=== PATIENT | male | born 1985 | race African-American/Black ===

== ENCOUNTER 2018-06-04 10:10 | Emergency (ER) | payer MEDICAID ==
[~2018-06-04] VITALS: Ht 182.9 cm; Wt 95.3 kg
--- NOTE | 2018-06-04 10:22 | NUR ---
ED Nurse Note: patient came in for sore thoat, chills, reports pain 8/10 for sorethroat. a/o x4, ambulatory steady gait.
--- NOTE | 2018-06-04 10:38 | Emergency Room Report ---
History of Present Illness General Chief Complaint: Flu Like Symptoms Source: Patient Present Illness HPI Patient presents with sore throat chills cough body aches for 2 days. He did have a flu shot this year. He took Tylenol yesterday and some TheraFlu earlier this morning. He still feels weak and extremely tired. Generalized joint pain and some headache. Pain rated 8/10, aching, all body. No rashes, dysuria, NVD. Never used inhaler. Has heard himself wheezing at night. Allergies: Coded Allergies: No Known Allergies (Unverified , 06/04/18) Patient History Social History: Reports: smoking Social History Narrative works at [employer] Reviewed Nursing Documentation: PMH: Agreed; PSxH: Agreed Nursing Documentation-PMH Past Medical History: No Stated History Review of Systems All Other Systems: negative except mentioned in HPI Physical Exam Vital Signs Date Time Temp Pulse Resp B/P (MAP) Pulse Ox O2 Delivery O2 Flow Rate FiO2 06/04/18 10:16 99.0 107 20 113/74 98 Room Air Sp02 EP Interpretation: reviewed, normal General Appearance: well appearing, no apparent distress, alert, GCS 15, non- toxic Head: normocephalic, atraumatic Eyes: bilateral eye normal inspection, bilateral eye PERRL ENT: pharyngeal erythema, other - cerumen Neck: supple Respiratory: lungs clear, normal breath sounds Cardiovascular #1: no edema Gastrointestinal: normal inspection, normal bowel sounds Musculoskeletal: no calf tenderness Neurologic: alert, normal gait Psychiatric: mood/affect normal Skin: no rash Medical Decision Making Diagnostic Impression: Primary Impression: URI (upper respiratory infection) Qualified Codes: J06.9 - Acute upper respiratory infection, unspecified ER Course Patient presents with viral upper respiratory symptomatology. He had a flu shot. This sounds like influenza and therefore a flu swab will be obtained. Also patient will be given Tylenol. Problems with flu swab... finally negative. Improved with treatment. Discussed treatment plan. Patient stable for outpatient observation and treatment. Microbiology Date/Time Source Procedure Growth Status 06/04/18 12:40 Nose Influenza Types A,B Antigen (KELVIN) - Final Complete Last Vital Signs Date Time Temp Pulse Resp B/P (MAP) Pulse Ox O2 Delivery O2 Flow Rate FiO2 06/04/18 13:31 98.7 99 20 105/78 97 Room Air Status: improved Disposition: HOME, SELF-CARE Condition: Improved Scripts Chlorpheniramine Maleate (CHLOR-TRIMETON) 4 Mg Tablet 4 MG PO Q6HR PRN for conjestion, #10 TAB Prov: Abisai Cyr MD 06/04/18 Acetaminophen (Tylenol) 325 Mg Tablet 650 MG ORAL Q6H PRN for Prn Pain/Headache/Temp > 101, #20 TAB 0 Refills Prov: Abisai Cyr MD 06/04/18 Guaifenesin/Codeine Phos* (ROBITUSSIN AC*) 118 Ml Liquid 5 ML ORAL Q6H PRN for For Cough, #60 ML 0 Refills Prov: Abisai Cyr MD 06/04/18 Albuterol Sulfate* (ALBUTEROL SULFATE MDI*) 8.5 Gm Hfa.aer.ad 2 PUFF INH Q6H, #1 EA 0 Refills Prov: Abisai Cyr MD 06/04/18 Abisai Cyr MD Jun 04, 2018 10:38
[2018-06-04 10:41] VITALS: BP 113/74
[2018-06-04] MEDS ORDERED: CHLOR-TRIMETON4 MG PO (13:24)
[2018-06-04] MEDS ORDERED: TYLENOL325 MG ORAL (13:24)
[2018-06-04] MEDS ORDERED: GUAIFENESIN-CO118 M1 ORAL (13:24)
[2018-06-04] MEDS ORDERED: ALBUTEROL SULF8.5 GM INH (13:24)
[2018-06-04 13:31] VITALS: BP 105/78
--- NOTE | 2018-06-04 13:31 | NUR ---
ED Nurse Note: Pt is clear to be discharged by ERMD. Discharge paper and prescripiton given, pt verbalized understanding of discharge instruction. AOx4, VSS. Wristband removed. Pt ambulated out with steady gait with all belongings.
== END 2018-06-04 13:31 | disposition home or self-care (01) ==
LOC: EMR 10:30
DX: J06.9 Acute upper respiratory infection, unspecified (principal); F17.200 Nicotine dependence, unspecified, uncomplicated
CPT/HCPCS: 86710; 99283

== ENCOUNTER 2018-06-20 19:33 | Emergency (ER) | payer MEDICAID ==
[~2018-06-20] VITALS: Ht 182.9 cm; Wt 95.3 kg
[~2018-06-20 19:33] MED LIST: ALBUTEROL SULF8.5 GM INH; CHLOR-TRIMETON4 MG PO; GUAIFENESIN-CO118 M1 ORAL; TYLENOL325 MG ORAL
[2018-06-20 20:00] VITALS: BP 116/70
--- NOTE | 2018-06-20 20:07 | NUR ---
ED Nurse Note: shari walked into ED c/o of a migraine that has been going for for 3 days now, when asked about where the pain is, patient states that it is all over. patient rates his pain a 10/10 pain. patient is alert and oriented x4, ambulatory with a steady gait, vSS
[2018-06-20] MEDS ORDERED: Excedrin Migraine tab ORAL ONE (20:15)
[2018-06-20] MEDS ORDERED: Ketorolac 30mg Inj IM ONE (20:15)
--- NOTE | 2018-06-20 20:32 | Emergency Room Report ---
History of Present Illness General Chief Complaint: Headache Source: Patient Present Illness HPI 32-year-old male presents to the emergency department complaining of 10 out of 10 in severity left-sided migraine 4 days. She reports history of migraines and states that the pain that he is feeling today is consistent with how he his migraines typically feel. Patient states that medication he was prescribed is not providing relief. Patient does not know the name of the medication that he was prescribed. Patient has a MRI canceled for this Wednesday. He denies trauma or fall. He denies sudden onset. He reports some photophobia denies hyperacusis, nausea, vomiting. Denies fevers, chills neck pain or stiffness. Allergies: Coded Allergies: No Known Allergies (Unverified , 06/20/18) Patient History Past Medical History: see triage record Past Surgical History: none Pertinent Family History: none Reviewed Nursing Documentation: PMH: Agreed; PSxH: Agreed Nursing Documentation-PMH Past Medical History: No Stated History Review of Systems All Other Systems: negative except mentioned in HPI Physical Exam Vital Signs Date Time Temp Pulse Resp B/P (MAP) Pulse Ox O2 Delivery O2 Flow Rate FiO2 06/20/18 19:56 99.7 88 16 116/70 97 Room Air Sp02 EP Interpretation: reviewed, normal General Appearance: alert, GCS 15, non-toxic, mild distress Head: normocephalic, atraumatic Eyes: bilateral eye normal inspection, bilateral eye PERRL ENT: hearing grossly normal, normal voice Neck: full range of motion, no meningismus, no bony tend Respiratory: lungs clear, normal breath sounds, speaking full sentences Cardiovascular #1: regular rate, rhythm Musculoskeletal: back normal, gait/station normal, normal range of motion, non- tender Neurologic: alert, oriented x3, responsive, motor strength/tone normal, sensory intact, normal gait, speech normal, no pronator, other - no facial droop , no slurred speech. , grossly normal Psychiatric: judgement/insight normal Skin: normal color, no rash, warm/dry, well hydrated Medical Decision Making PA Attestation Dr. Webster is my supervising Physician whom patient management has been discussed with. Diagnostic Impression: Primary Impression: Headache Qualified Codes: R51 - Headache ER Course 32-year-old male presents to the emergency department complaining of 10 out of 10 in severity left-sided migraine 4 days. She reports history of migraines and states that the pain that he is feeling today is consistent with how he his migraines typically feel. Patient states that medication he was prescribed is not providing relief. Patient does not know the name of the medication that he was prescribed. Patient has a MRI canceled for this Wednesday. He denies trauma or fall. He denies sudden onset. He reports some photophobia denies hyperacusis, nausea, vomiting. Denies fevers, chills neck pain or stiffness. Ddx considered but are not limited to migraine, SAH, Pseudomotor Cerebri, Mass lesion, Cluster BURROWS, Tension BURROWS, Post lumbar puncture BURROWS. Vital signs: are WNL, pt. is afebrile H&PE are most consistent with migraine headache--- no focal neurological deficits. ORDERS: -Reglan PO --Excedrine Migraine PO -IM Toradol -Benadryl PO ED INTERVENTIONS: DISCHARGE: At this time pt. is stable for d/c to home. Will provide printed patient care instructions, and any necessary prescriptions. Care plan and follow up instructions have been discussed with the patient prior to discharge. Last Vital Signs Date Time Temp Pulse Resp B/P (MAP) Pulse Ox O2 Delivery O2 Flow Rate FiO2 06/20/18 19:56 99.7 88 16 116/70 97 Room Air Status: improved Disposition: HOME, SELF-CARE Condition: Stable Departure Forms: Return to Work Return to Work Date: Jun 23, 2018 Work Restrictions: None Other Restrictions: May return Sooner if Symptoms have resolved. Return to Full Activity: Jun 23, 2018 Patient Instructions: Migraine Headache Additional Instructions: Take medications as directed. Follow up with a Primary Care Provider in 3-5 days For a referral to have NEUROLOGIST Evaluation, even if your symptoms have resolved. --Please review list of primary care clinics, if you do not already have a primary care provider Return sooner to ED if new symptoms occur, or current symptoms become worse. Do not drink alcohol or drive/operate heavy machinery while taking medications as some of these may cause drowsiness, and impair your judgment. - Please note that this Emergency Department Report was dictated using [employer] cardiac technology software, occasionally this can lead to erroneous entry secondary to interpretation by the dictation equipment. Laya Lew Jun 20, 2018 20:32
[2018-06-20 21:30] VITALS: BP 130/67
--- NOTE | 2018-06-20 21:30 | NUR ---
ED Nurse Note: Patient is being discharged from ED alert and oriented x4, ambulatory with a steady gait, VSS. patient acknowledged the need to follow up with PMD within a week if symptoms dont improve, Id band removed, prescription in hand and all belongings sent home with patient
[2018-06-20] MEDS ORDERED: REGLAN10 MG ORAL (21:41)
[2018-06-20] MEDS ORDERED: EXCEDRIN MIGRA1 EACH PO (21:41)
[2018-06-20] MEDS ORDERED: BENADRYL ALLERG25 M1 PO (21:41)
== END 2018-06-20 21:30 | disposition home or self-care (01) ==
LOC: EMR 20:18
DX: R51 Headache (principal); F17.200 Nicotine dependence, unspecified, uncomplicated
CPT/HCPCS: 96372; 99283; J1885

== ENCOUNTER 2020-08-04 12:12 | Emergency (ER) | payer OTHER, MEDICAID ==
[~2020-08-04] VITALS: Ht 180.3 cm; Wt 122.5 kg
[~2020-08-04 12:12] MED LIST changes: +BENADRYL ALLERG25 M1 PO; +EXCEDRIN MIGRA1 EACH PO; +REGLAN10 MG ORAL
--- NOTE | 2020-08-04 12:20 | Emergency Room Report ---
History of Present Illness General Chief Complaint: seizure Source: EMS (Jazmin Murphy M.D.) Present Illness HPI Patient is a 34-year-old male reported history of migraines in the past who presents to the ER for seizure. Patient was brought in from home by EMS. Per family they told EMS that the patient had a generalized tonic-clonic seizure. No reported history of seizures. Unable to obtain further history at this time as the patient is postictal (Jazmin Murphy M.D.) Allergies: Coded Allergies: No Known Allergies (Unverified , 06/20/18) Patient History Reviewed Nursing Documentation: PMH: Agreed; PSxH: Agreed (Jazmin Murphy M.D.) Review of Systems All Other Systems: negative except mentioned in HPI (Jazmin Murphy M.D.) Physical Exam Sp02 EP Interpretation: reviewed, normal General Appearance: no apparent distress, non-toxic Head: normocephalic, atraumatic Eyes: bilateral eye normal inspection, bilateral eye PERRL ENT: hearing grossly normal, normal pharynx, no angioedema, normal voice Neck: full range of motion, supple/symm/no masses Respiratory: chest non-tender, lungs clear, normal breath sounds, speaking full sentences Cardiovascular #1: regular rate, rhythm, no edema Gastrointestinal: normal bowel sounds, non tender, soft, non-distended, no guarding, no rebound Rectal: deferred Musculoskeletal: normal range of motion Skin: no rash Lymphatic: no adenopathy (Jazmin Murphy M.D.) Medical Decision Making Diagnostic Impression: Primary Impression: Epileptic seizure, generalized Additional Impression: Cocaine abuse ER Course Patient is now awake and alert. He states that he has had a history of seizures but is not on any medications. Patient loaded with Keppra. Patient's labs demonstrate no significant acute abnormalities. CT brain demonstrates no acute intracranial pathology. Patient pending urinalysis and UDS. Patient signed out to oncoming physician. Laboratory Tests Test 08/04/20 12:39 08/04/20 13:40 White Blood Count 6.2 K/UL (4.8-10.8) Red Blood Count 5.05 M/UL (4.70-6.10) Hemoglobin 15.3 G/DL (14.2-18.0) Hematocrit 47.0 % (42.0-52.0) Mean Corpuscular Volume 93 FL (80-99) Mean Corpuscular Hemoglobin 30.3 PG (27.0-31.0) Mean Corpuscular Hemoglobin Concent 32.6 G/DL (32.0-36.0) Red Cell Distribution Width 13.3 % (11.6-14.8) Platelet Count 249 K/UL (150-450) Mean Platelet Volume 7.3 FL (6.5-10.1) Neutrophils (%) (Auto) 55.5 % (45.0-75.0) Lymphocytes (%) (Auto) 33.6 % (20.0-45.0) Monocytes (%) (Auto) 5.9 % (1.0-10.0) Eosinophils (%) (Auto) 3.4 % (0.0-3.0) H Basophils (%) (Auto) 1.6 % (0.0-2.0) Sodium Level 138 MMOL/L (136-145) Potassium Level 3.2 MMOL/L (3.5-5.1) L Chloride Level 100 MMOL/L (98-107) Carbon Dioxide Level 28 MMOL/L (21-32) Anion Gap 10 mmol/L (5-15) Blood Urea Nitrogen 12 mg/dL (7-18) Creatinine 1.3 MG/DL (0.55-1.30) Estimated Glomerular Filtration Rate > 60 mL/min (>60) Glucose Level 172 MG/DL (74-106) H Calcium Level 9.6 MG/DL (8.5-10.1) Phosphorus Level 1.7 MG/DL (2.5-4.9) L Magnesium Level 2.2 MG/DL (1.8-2.4) Total Bilirubin 0.2 MG/DL (0.2-1.0) Aspartate Amino Transferase (AST) 26 U/L (15-37) Alanine Aminotransferase (ALT) 52 U/L (12-78) Alkaline Phosphatase 94 U/L (46-116) Total Protein 8.3 G/DL (6.4-8.2) H Albumin 4.1 G/DL (3.4-5.0) Globulin 4.2 g/dL Albumin/Globulin Ratio 1.0 (1.0-2.7) Thyroid Stimulating Hormone (TSH) 1.505 uiU/mL (0.358-3.740) Free Thyroxine 0.79 NG/DL (0.76-1.46) Urine Color Pending Urine Appearance Pending Urine pH Pending Urine Specific Fromberg Pending Urine Protein Pending Urine Glucose (UA) Pending Urine Ketones Pending Urine Blood Pending Urine Nitrite Pending Urine Bilirubin Pending Urine Urobilinogen Pending Urine Leukocyte Esterase Pending Urine Opiates Screen Pending Urine Barbiturates Screen Pending Phencyclidine (PCP) Screen Pending Urine Amphetamines Screen Pending Urine Benzodiazepines Screen Pending Urine Cocaine Screen Pending Urine Marijuana (THC) Screen Pending (Jazmin Murphy M.D.) ER Course Assumed care of the patient from the previous provider at approximately 1400. Please refer to initial note for full history and physical exam. Briefly, 34-year-old male with history of seizure disorder presents for evaluation of seizure. Patient loaded with Keppra. Blood work unremarkable. At the time of signout urinalysis and tox cream are pending. He has turned positive for cocaine but no evidence of acute urinary tract infection. He is awake and alert and back to his neurologic baseline. Will restart Keppra for the patient as he has not been taking it. Discussed that he should not drive, operate a motor vehicle, climb ladders, swim unattended or perform any other dangerous actions that may result in serious self injury or harm to others should he have another seizure. Also discussed his use of stimulants as a possible trigger for seizures and instructed him to no longer participate in these activities is to be very dangerous to his health and even fatal. He acknowledged understanding. Stable for outpatient follow-up. Laboratory Tests Test 08/04/20 12:39 08/04/20 13:40 White Blood Count 6.2 K/UL (4.8-10.8) Red Blood Count 5.05 M/UL (4.70-6.10) Hemoglobin 15.3 G/DL (14.2-18.0) Hematocrit 47.0 % (42.0-52.0) Mean Corpuscular Volume 93 FL (80-99) Mean Corpuscular Hemoglobin 30.3 PG (27.0-31.0) Mean Corpuscular Hemoglobin Concent 32.6 G/DL (32.0-36.0) Red Cell Distribution Width 13.3 % (11.6-14.8) Platelet Count 249 K/UL (150-450) Mean Platelet Volume 7.3 FL (6.5-10.1) Neutrophils (%) (Auto) 55.5 % (45.0-75.0) Lymphocytes (%) (Auto) 33.6 % (20.0-45.0) Monocytes (%) (Auto) 5.9 % (1.0-10.0) Eosinophils (%) (Auto) 3.4 % (0.0-3.0) H Basophils (%) (Auto) 1.6 % (0.0-2.0) Sodium Level 138 MMOL/L (136-145) Potassium Level 3.2 MMOL/L (3.5-5.1) L Chloride Level 100 MMOL/L (98-107) Carbon Dioxide Level 28 MMOL/L (21-32) Anion Gap 10 mmol/L (5-15) Blood Urea Nitrogen 12 mg/dL (7-18) Creatinine 1.3 MG/DL (0.55-1.30) Estimated Glomerular Filtration Rate > 60 mL/min (>60) Glucose Level 172 MG/DL (74-106) H Calcium Level 9.6 MG/DL (8.5-10.1) Phosphorus Level 1.7 MG/DL (2.5-4.9) L Magnesium Level 2.2 MG/DL (1.8-2.4) Total Bilirubin 0.2 MG/DL (0.2-1.0) Aspartate Amino Transferase (AST) 26 U/L (15-37) Alanine Aminotransferase (ALT) 52 U/L (12-78) Alkaline Phosphatase 94 U/L (46-116) Total Protein 8.3 G/DL (6.4-8.2) H Albumin 4.1 G/DL (3.4-5.0) Globulin 4.2 g/dL Albumin/Globulin Ratio 1.0 (1.0-2.7) Thyroid Stimulating Hormone (TSH) 1.505 uiU/mL (0.358-3.740) Free Thyroxine 0.79 NG/DL (0.76-1.46) Urine Color Pale yellow Urine Appearance Clear Urine pH 7 (4.5-8.0) Urine Specific Fromberg 1.010 (1.005-1.035) Urine Protein Negative (NEGATIVE) Urine Glucose (UA) 3+ (NEGATIVE) H Urine Ketones Negative (NEGATIVE) Urine Blood Negative (NEGATIVE) Urine Nitrite Negative (NEGATIVE) Urine Bilirubin Negative (NEGATIVE) Urine Urobilinogen Normal MG/DL (0.0-1.0) Urine Leukocyte Esterase 1+ (NEGATIVE) H Urine RBC 0 /HPF (0 - 0) Urine WBC 0-2 /HPF (0 - 0) Urine Squamous Epithelial Cells Occasional /LPF Urine Bacteria Occasional /HPF (NONE) Urine Opiates Screen Negative (NEGATIVE) Urine Barbiturates Screen Negative (NEGATIVE) Phencyclidine (PCP) Screen Negative (NEGATIVE) Urine Amphetamines Screen Negative (NEGATIVE) Urine Benzodiazepines Screen Negative (NEGATIVE) Urine Cocaine Screen Positive (NEGATIVE) H Urine Marijuana (THC) Screen Negative (NEGATIVE) (Ryan Dao MD) EKG Diagnostic Results Troponin ordered: No - Ordered for seizure EKG Time: 12:31 EP Interpretation: Jazmin Murphy MD Rate: normal - 95 bpm Rhythm: NSR ST Segments: no acute changes ASA given to the pt in ED: No (Jazmin Murphy M.D.) Rhythm Strip Diag. Results Rhythm Strip Time: 13:20 EP Interpretation: yes - Jazmin Murphy MD Rate: 67 bpm Rhythm: NSR, no PVC's, no ectopy (Jazmin Murphy M.D.) Chest X-Ray Diagnostic Results Chest X-Ray Diagnostic Results : Chest X-Ray Ordered: Yes # of Views/Limited/Complete: 1 View Indication: Other - Seizure disorder EP Interpretation: Yes Interpretation: no consolidation, no effusion, no pneumothorax, no acute cardiopulmonary disease Impression: No acute disease Electronically Signed by: Jazmin Murphy MD (Jazmin Murphy M.D.) Disposition: HOME, SELF-CARE Condition: Stable Scripts Levetiracetam (KEPPRA) 500 Mg Tablet 500 MG ORAL EVERY 12 HOURS, #60 TAB 0 Refills Prov: Jazmin Murphy M.D. 08/04/20 Additional Instructions: The patient was provided with discharge instructions, notified to follow-up with a primary care doctor and or specialist in the next 24-48 hours, and to return to the ED if they have worsening of their symptoms. Please note that this report is being documented using [employer] technology. This can lead to erroneous entry secondary to incorrect interpretation by the dictating instrument. Jazmin Murphy M.D. Aug 04, 2020 12:20 Ryan Dao MD Aug 04, 2020 14:37
--- NOTE | 2020-08-04 12:45 | NUR ---
Patient presents to the ER from home via EMS in a post-ictal state. Per family (mother), patient has a history of tonic-clonic seizures but has not had to take medications for it. He also has a history of clustered migraines. He does not have any other medical history. GINNY.
[2020-08-04 13:00] LABS: BASOPHILS % (AUTO) 1.6 % (0.0-2.0); EOSINOPHILS % (AUTO) 3.4 % (0.0-3.0); HEMOGLOBIN 15.3 G/DL (14.2-18.0); LYMPHOCYTES % (AUTO) 33.6 % (20.0-45.0); MEAN CORPUSCULAR VOLUME 93 FL (80-99); MONOCYTES % (AUTO) 5.9 % (1.0-10.0); NEUTROPHILS % (AUTO) 55.5 % (45.0-75.0); PLATELET COUNT 249 K/UL (150-450); RED BLOOD COUNT 5.05 M/UL (4.70-6.10); RED CELL DISTRIBUTION WIDTH 13.3 % (11.6-14.8); WHITE BLOOD COUNT 6.2 K/UL (4.8-10.8)
[2020-08-04 13:18] LABS: ANION GAP 10 mmol/L (5-15); BLOOD UREA NITROGEN 12 mg/dL (7-18); CALCIUM 9.6 MG/DL (8.5-10.1); CARBON DIOXIDE 28 MMOL/L (21-32); CHLORIDE 100 MMOL/L (98-107); CREATININE 1.3 MG/DL (0.55-1.30); POTASSIUM 3.2 MMOL/L (3.5-5.1); SODIUM 138 MMOL/L (136-145)
[2020-08-04 13:22] LABS: ALANINE AMINOTRANSFERASE 52 U/L (12-78); ALBUMIN 4.1 G/DL (3.4-5.0); ALKALINE PHOSPHATASE 94 U/L (46-116); ASPARTATE AMINO TRANSFERASE 26 U/L (15-37); BILIRUBIN,TOTAL 0.2 MG/DL (0.2-1.0); PHOSPHORUS 1.7 MG/DL (2.5-4.9)
--- NOTE | 2020-08-04 13:26 | Diagnostic Imaging Report ---
EXAM: XR Chest, 1 View CLINICAL HISTORY: AMS TECHNIQUE: Frontal view of the chest. COMPARISON: No relevant prior studies available. FINDINGS: Lungs: Hypoventilatory exam. No clear consolidation. Pleural space: Unremarkable. No pneumothorax. Heart: Unremarkable. No cardiomegaly. Mediastinum: Unremarkable. Bones/joints: Unremarkable. IMPRESSION: Hypoventilatory exam. No clear consolidation.
--- NOTE | 2020-08-04 13:38 | Diagnostic Imaging Report ---
EXAM: CT Head Without Intravenous Contrast CLINICAL HISTORY: AMS TECHNIQUE: Axial computed tomography images of the head/brain without intravenous contrast. CTDI is 53.4 mGy and DLP is 1072.2 mGy-cm. One or more of the following dose reduction techniques were used: automated exposure control, adjustment of the mA and/or kV according to patient size, use of iterative reconstruction technique. COMPARISON: No relevant prior studies available. FINDINGS: Brain: Unremarkable. No hemorrhage. No significant white matter disease. No edema. Ventricles: Unremarkable. No ventriculomegaly. Bones/joints: Unremarkable. No acute fracture. Soft tissues: Unremarkable. Sinuses: Unremarkable as visualized. No acute sinusitis. Mastoid air cells: Unremarkable as visualized. No mastoid effusion. IMPRESSION: No acute intracranial process
[2020-08-04] MEDS ORDERED: levETIRAcetam 1,000mg/NS100ml 100 ML IVPB ONE (13:45)
[2020-08-04] MEDS ORDERED: KEPPRA500 M4 ORAL (13:54)
[2020-08-04 14:02] LABS: APPEARANCE,URINE CLEAR; BILIRUBIN, URINE NEGATIVE (NEGATIVE); COLOR,URINE PALE YELLOW; GLUCOSE, URINE (UA) 3+ (NEGATIVE); KETONES,URINE NEGATIVE (NEGATIVE); LEUKOCYTE ESTERASE ,URINE 1+ (NEGATIVE); NITRITE,URINE NEGATIVE (NEGATIVE); PH,URINE 7 (4.5-8.0); PROTEIN,URINE NEGATIVE (NEGATIVE); UROBILINOGEN,URINE NORMAL MG/DL (0.0-1.0)
[2020-08-04 14:06] VITALS: BP 115/68
--- NOTE | 2020-08-04 14:07 | NUR ---
pt able to walk to restroom to provide urine sample.
== END 2020-08-04 14:54 | disposition home or self-care (01) ==
LOC: EDBD 12:12 → EMR 13:03
DX: G40.909 Epilepsy, unspecified, not intractable, without status epilepticus (principal); F14.10 Cocaine abuse, uncomplicated
CPT/HCPCS: 36415; 70450; 71045; 80053; 80307; 81003; 83735; 84100; 84439; 84443; 85025; 93005; 96361; 96374; 96375; 99284; J1953; J7030; J8499